=== PATIENT | male | born 1940 | race Caucasian/White ===

== ENCOUNTER 2018-06-21 11:45 | Emergency (ER) | payer OTHER ==
[2018-06-21 12:03] VITALS: TEMP 97.8; BMI 21.2
--- NOTE | 2018-06-21 12:05 | PDOC ---
Attending Attestation - Resident Resident Name: ChaddteoedwardSebastián - ED Attending Attestation I have performed the following: I have examined & evaluated the patient, The case was reviewed & discussed with the resident, I agree w/resident's findings & plan, Exceptions are as noted - HPI HPI: 06/21/18 12:03 78 year old male c/ hx of prostate CA, dementia, hx subdural hematoma BIBEMS from [facility] for mechanical fall. I had spoken with the charge nurse at [facility]. Pt had an unwitnessed fall. Unclear if he hit his head 2/2 dementia. Pt is on heparin at the custodial. Sustained an abrasion/superficial laceration to the left upper extremity which the charge nurse wrapped up. Pt has no other complaints at this time. Pt was sent to the ER for a CT head. - Physicial Exam PE: 06/21/18 12:18 GENERAL: Awake, alert, and fully oriented x 1 (likely 2/2 dementia), in no acute distress HEAD: No signs of trauma EYES: PERRLA, EOMI, sclera anicteric, conjunctiva clear ENT: Auricles normal inspection, hearing grossly normal, nares patent, NECK: Normal ROM, supple, no c-spine tenderness LUNGS: Breath sounds equal, clear to auscultation bilaterally. No wheezes, and no crackles HEART: Regular rate and rhythm, normal S1 and S2, no murmurs, rubs or gallops ABDOMEN: Soft, nontender,. No guarding, no rebound. No masses EXTREMITIES: Normal range of motion, no edema. No clubbing or cyanosis. No cords, erythema, or tenderness PELVIS: stable with no tenderness. Able to flex hips without difficulty. NEUROLOGICAL: Cranial nerves II through XII grossly intact. Normal speech SKIN: Warm, Dry, small abrasion and skin tear to the left forearm. No lacerations. - Medical Decision Making 06/21/18 12:20 Vital Signs Temp Pulse Resp BP Pulse Ox 97.8 F 59 L 18 130/64 98 06/21/18 11:45 06/21/18 11:45 06/21/18 11:45 06/21/18 11:45 06/21/18 11:45 Patient with mechanical fall. Left upper extremity requires no sutures. We'll need to clean and cover wound. Supportive care. We'll obtain a head CT and CT C-spine given the fall. If the workup is negative, the patient can be sent back to custodial. The patient currently has no other complaints and appears to be at baseline. 06/21/18 13:35 Spinal CAT scans demonstrate no acute fracture. 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 No acute ICH or gross infarct appreciated. 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 Pt appears well and without any neuro deficits. 06/21/18 14:37 I had spoken with Joel - detail supervisor at [facility] States that this is unchanged from prior after my conversation. Pt's is here and agrees that patient is at baseline. Will discharge patient back to facility.
--- NOTE | 2018-06-21 12:24 | PDOC ---
History of Present Illness - General Chief Complaint: Injury Stated Complaint: BIBA FALL Time Seen by Provider: 06/21/18 11:49 History Source: Patient Exam Limitations: Dementia - History of Present Illness Initial Comments: 06/21/18 12:05 78 M pmh significant for dementia, prostate CA, subdural hematoma [facility] for mechanical fall today while trying to stand. Patient hit his head and is on Heparin. Baseline AOX1. Unable to complete ROS due to dementia. Past History - Past Medical History Allergies/Adverse Reactions: Allergies Allergy/AdvReac Type Severity Reaction Status Date / Time Penicillins Allergy Verified 06/21/18 11:48 Home Medications: Ambulatory Orders Acetaminophen [Tylenol -] 650 mg PO Q6H PRN 06/21/18 Amiodarone HCl 200 mg PO DAILY 06/21/18 Ascorbate Calcium [Vitamin C] 500 mg PO DAILY 06/21/18 Aspirin [Aspirin EC] 81 mg PO DAILY 06/21/18 Atorvastatin Ca [Lipitor] 80 mg PO HS 06/21/18 Docusate Sodium [Colace] 100 mg PO TID 06/21/18 Levothyroxine [Synthroid -] 112 mcg PO DAILY 06/21/18 Metoprolol Succinate [Toprol Xl] 100 mg PO DAILY 06/21/18 Multivitamins [Tab-A-Vit -] 1 tab PO DAILY 06/21/18 Nifedipine [Procardia Xl] 60 mg PO DAILY 06/21/18 Pantoprazole Sodium 40 mg PO DAILY 06/21/18 Sennosides [Senna] 2 500s PO HS 06/21/18 Cancer: Yes (PROSTATE) CVA: Yes (TRAUMA SUBD HEMATOMA) COPD: No Dementia: Yes - Suicide/Smoking/Psychosocial Hx Smoking History: Unknown if ever smoked Have you smoked in the past 12 months: No Review of Systems - Review of Systems Able to Perform ROS?: No (dementia unspecified ) *Physical Exam - Vital Signs Last Vital Signs Temp Pulse Resp BP Pulse Ox 97.8 F 59 L 18 130/64 98 06/21/18 11:45 06/21/18 11:45 06/21/18 11:45 06/21/18 11:45 06/21/18 11:45 - Physical Exam General Appearance: Yes: Nourished, Appropriately Dressed HEENT: positive: EOMI, INA Neck: negative: Tender Respiratory/Chest: positive: Lungs Clear, Normal Breath Sounds Cardiovascular: positive: Regular Rhythm, Regular Rate, S1, S2. negative: Edema , JVD, Murmur Vascular Pulses: Dorsalis-Pedis (R): 3+, Doralis-Pedis (L): 3+ Gastrointestinal/Abdominal: positive: Normal Bowel Sounds, Flat, Soft. negative : Pulsatile Mass, Guarding, Rebound, Tenderness Extremity: positive: Normal Capillary Refill Integumentary: positive: Bruising, Other (abrasions to left arm and hand) Neurologic: positive: Alert, Normal Mood/Affect, Normal Response, Other (pt at his normal baseline with no changes according to . Moving all limbs spontaneously). negative: Fully Oriented (baseline AOX1), Sensory Deficit ED Treatment Course - RADIOLOGY Radiology Studies Ordered: Category Date Time Status CERVICAL SPINE CT W/O CONTR [CT] Stat CT Scan 06/21/18 12:[address] (STROKE) [CT] Stat CT Scan 06/21/18 12:02 Ordered *DC/Admit/Observation/Transfer Diagnosis at time of Disposition: Fall Qualifiers: Encounter type: subsequent encounter Qualified Code(s): W19.XXXD - Unspecified fall, subsequent encounter - Discharge Dispostion Disposition: [facility] Condition at time of disposition: Stable Decision to Admit order: No - Referrals Referrals: judson garcia [Other] - Patient Instructions Printed Discharge Instructions: How to Prevent Falls Additional Instructions: Please meet with your Family Doctor at [facility] regarding the findings printed out for you. Return to the Emergency Room for new or worsening symptoms including but not limited to: new falls, head ache, one sided weakness, nausea or vomiting. Take over the counter Motrin for pain as needed and directed on the box every 4- 6 hours - Post Discharge Activity
[2018-06-21 15:17] VITALS: BP 146/67; PULSE 78
== END 2018-06-21 15:10 ==
LOC: FER 11:45
DX: S09.90XA Unspecified injury of head, initial encounter (principal); W18.39XA Other fall on same level, initial encounter; Y93.89 Activity, other specified; Y92.099 Unspecified place in other non-institutional residence as the place of occurrence of the external cause; F03.90 Unspecified dementia, unspecified severity, without behavioral disturbance, psychotic disturbance, mood disturbance, and anxiety; Z85.46 Personal history of malignant neoplasm of prostate; Z79.01 Long term (current) use of anticoagulants; Z87.820 Personal history of traumatic brain injury
CPT/HCPCS: 70450-TC; 72125-TC; 99283-25